=== PATIENT | male | born 1955 | race Caucasian/White ===

== ENCOUNTER 2019-01-14 08:26 | Outpatient (CLI) | payer BC, OTHER ==
--- NOTE | 2019-01-14 09:30 | MRI ---
MRI CERVICAL SPINE WITHOUT CONTRAST: HISTORY: Chronic neck pain. HLA-B27 positive. Shoulder and arm pain. Tingling. COMPARISON: None. FINDINGS: Appropriate T1 marrow signal intensity of the cervical vertebrae. Vertebral body height is maintaine d. No fracture. No significant STIR hyperintensity to suggest vertebral body edema or ligamentous injury. The visualized brain parenchyma, cervicomedullary junction, cervical cord and the upper thoracic cord are normal size and signal intensity. C2-C3: No significant central canal stenosis. Neural foramina are patent. C3-C4: Broad-based disc osteophyte complex. No significant central canal stenosis. Moderate bilate ral foraminal narrowing due to uncovertebral hypertrophy. C4-C5: Central disc protrusion abuts the thecal sac. No significant central canal stenosis. Bilate rally, neural foramina are patent. C5-C6: Broad-based disc osteophyte complex abuts the thecal sac. The ventral thecal sac is mildly d eformed, along with mild deformity of the cervical cord. Mild central canal stenosis. No cord hyperintensity. Moderate right foraminal narrowing due to uncovertebral and facet hypertrophy. Mild left foraminal narrowing due to uncovertebral hypertrophy. C6-C7: There is a broad-based disc bulge with a right paracentral component. Mild central canal jean-pierre nosis. Moderate right foraminal narrowing due to uncovertebral hypertrophy. Left neural foramen is patent. C7-T1: Moderate loss of disc space height. No significant central canal stenosis. Right neural for amen is patent. Severe left foraminal narrowing due to uncovertebral hypertrophy. IMPRESSION: Degenerative changes of the cervical spine, as detailed above. Transcribed Date/Time: 01/14/2019 10:07 AM
--- NOTE | 2019-01-14 21:04 | MRI ---
MRI LUMBAR SPINE NONCONTRAST: 01/14/19 HISTORY: Low back pain. Left leg radiculopathy. FINDINGS: Radiographs are not available for direct correlation, therefore the lowest lumbar type vertebra will be designated as L5, with the remainder numbered accordingly. The conus medullaris has a normal appearance. Vertebral body heights are maintained. At the T11-12 level, there is posterior disc bulge, disc space narrowing, and desiccation of the disc . No focal nerve root compression is apparent. Probable mild to moderate bilateral foraminal stenoses . T12-L1, L1-2: Mild osteophytosis. Central canal and neural foramina are patent. L2-3: Mild disc bulge. Circumferential degenerative changes. Mild stenosis of the central canal. L3-4: Mild disc space narrowing. Mild posterior disc bulge. Circumferential degenerative changes. Mil d to moderate stenosis of the central canal and left neural foramen. L4-5: Prominent disc space narrowing. Diffuse posterior disc bulge and circumferential degenerative c hanges. Moderate stenosis of the central canal and each neural foramen, left greater than right. L5-S1: Disc space narrowing and minimal degenerative retrolisthesis. Posterior central disc protrusio n with slight inferior extension. Far bilateral protrusion of the disc encroaches upon each neural fo ramen. There are also degenerative changes with moderate right and severe left foraminal stenoses. IMPRESSION: Multilevel degenerative changes throughout the lumbar spine as detailed above, with nerve root compro mise and stenosis greatest on the left at the lumbosacral junction. Clinical correlation regarding th e left L5 dermatome is required. POS: BST
== END 2019-01-14 08:27 | disposition home or self-care (01) ==
LOC: SCSMRI 08:26
PROVIDERS: ATTEND Family Medicine
DX: M47.26 Other spondylosis with radiculopathy, lumbar region (principal); M48.061 Spinal stenosis, lumbar region without neurogenic claudication; Z15.89 Genetic susceptibility to other disease; M47.22 Other spondylosis with radiculopathy, cervical region
CPT/HCPCS: 72141; 72148

== ENCOUNTER 2020-04-26 06:20 | Outpatient (CLI) | payer BC ==
[2020-04-26 10:17] LABS: #Eosinphils 0.1 10x3/uL (0.0-0.5); #Monocytes 0.5 10x3/uL (0.0-1.1); #Neutrophils 4.5 10x3/uL (1.5-8.4); %Basophils 0.5 % (0.0-2.0); %Eosinophils 1.5 % (0.0-6.0); %Lymphocytes 22.3 % (18.0-47.0); %Monocytes 7.1 % (0.0-10.0); %Neutrophils 68.4 % (40.0-75.0); Anion Gap 15 mmol/L (10-20); BUN (Urea Nitrogen) 13 mg/dL (8.4-25.7); Calc. Creatinine Clearance 0 mL/min (70-130); Calcium 9.2 mg/dL (7.8-10.44); Carbon Dioxide 24 mmol/L (23-31); Chloride 106 mmol/L (98-107); Glucose 97 mg/dL (80-115); Hemoglobin 15.1 g/dL (14.0-18.0); Mean Corpuscular HGB CONC 33.8 G/DL (32.0-36.0); Mean Corpuscular Volume 91.8 fl (80.0-100.0); Platelet Count 297 10x3/uL (130-400); Potassium 4.5 mmol/L (3.5-5.1); RBC Distribution Width 13.1 % (11.5-14.5); Red Blood Cell (RBC) Count 4.87 10x6/uL (4.40-5.80); Sodium 140 mmol/L (136-145); White Blood Cell (WBC) Count 6.6 10x3/uL (4.5-11.0)
[2020-04-26 18:26] LABS: SARS-CoV-2 MS2 Positive; SARS-CoV-2 N Gene Negative; SARS-CoV-2 S Gene Negative; SARS-CoV-2 by NAA Not Detected (NotDetected); SARS-CoV-2 orf1ab Negative
== END 2020-04-26 06:21 | disposition home or self-care (01) ==
LOC: LABBT 06:20
PROVIDERS: ATTEND Specialist
DX: Z01.818 Encounter for other preprocedural examination (principal); K40.90 Unilateral inguinal hernia, without obstruction or gangrene, not specified as recurrent; Z20.828 Contact with and (suspected) exposure to other viral communicable diseases
CPT/HCPCS: 87635; 93005; 93010; U0003

== ENCOUNTER 2020-04-29 07:41 | Day surgery (SDC) | payer BC, OTHER ==
--- NOTE | 2020-04-28 11:07 | HP ---
Mesfin Aggarwal, a 65-year-old male, [employer] employee nuclear engineering, is from [facility] and two years ago while in [facility], he had diagnosis of right inguinal hernia. Since that time, has enlarged, is bothersome to him. He has large dog that he plays with. Plan is for robot mesh repair of his right inguinal hernia. He is asymptomatic on the left. I cannot feel a hernia on the left, but if robotic/laparoscopically left inguinal hernia is present, we will plan repair. He understands risks of infection, bleeding, reoperation, recurrence, and consents. ALLERGIES: NONE. SOCIAL HISTORY: Tobacco, none. Alcohol, none. PAST SURGICAL HISTORY: Tonsillectomy. PAST MEDICAL HISTORY: Urolithiasis. FAMILY HISTORY: Father, pancreatic cancer, . Mother , diabetes, hypertension. Children, alive and well. REVIEW OF SYSTEMS: Ten-point noncontributory. PHYSICAL EXAMINATION: VITAL SIGNS: 184 pounds, 5 feet 9 inches, 25 BMI. 126/80, 60, and 97.4 degrees. NEUROLOGICAL: Intact. HEAD, EARS, EYES, NOSE, and THROAT: Unremarkable. LUNGS: Clear to auscultation. CARDIAC: Regular rate and rhythm without murmur or gallop. ABDOMEN: Soft, nontender. No masses. EXTREMITIES: Without ankle edema. No lymphadenopathy in neck, groin, or axilla. GENITOURINARY: Testicles are normal. Left groin without hernia. Standing Valsalva examined. Right inguinal hernia is present on standing, enlarged on Valsalva. ASSESSMENT AND PLAN: Right inguinal hernia. Plan for laparoscopic/robotic mesh repair as an outpatient. He understands risks of infection, bleeding, reoperation, recurrence, and consents. He consents for left inguinal hernia repair if indicated based on intraoperative findings. Job ID: [id number]
[2020-04-28 11:20] VITALS: BMI 27.1
[2020-04-29] MEDS ORDERED: Gabapentin 300 MG CAP ONE (08:00)
[2020-04-29] MEDS ORDERED: Ketorolac Tromethamine 30 MG/ML VIAL ONE ×2 (08:01→08:56)
[2020-04-29] MEDS ORDERED: Acetaminophen 500 MG TAB ONE ×2 (08:01→08:55)
[2020-04-29] MEDS ORDERED: Rocuronium Bromide 10 MG/ML (10ML VIAL) ONE (09:42)
[2020-04-29] MEDS ORDERED: ePHEDrine 50 MG/ML VIAL ONE (09:42)
[2020-04-29] MEDS ORDERED: Dexamethasone 20 MG/5 ML VIAL ONE (09:42)
[2020-04-29] MEDS ORDERED: PHENYLEPHRINE-NS 100 MCG/ML 10 ML SYRINGE ONE (09:42)
[2020-04-29] MEDS ORDERED: PROPOFOL 200 MG/20 ML VIAL ONE (09:42)
[2020-04-29] MEDS ORDERED: Glycopyrrolate 0.2 MG/ML 5 ML SYRINGE ONE (09:42)
[2020-04-29] MEDS ORDERED: Ondansetron PF 4 MG/2 ML Vial ONE ×2 (09:42→12:32)
[2020-04-29] MEDS ORDERED: Lidocaine 1% PF 5 ML VIAL ONE (09:42)
[2020-04-29] MEDS ORDERED: Lidocaine 1% w/Epinephrine 1:100K 20 ML VIAL ONE (10:41)
[2020-04-29] MEDS ORDERED: Bupivacaine PF 0.5% 30 ML VIAL ONE (10:41)
[2020-04-29] MEDS ORDERED: Fentanyl 100 MCG/2 ML VIAL ONE ×2 (10:49→12:55)
--- NOTE | 2020-04-29 12:49 | OP ---
DATE OF PROCEDURE: 04/29/2020 PREOPERATIVE DIAGNOSIS: Right inguinal hernia. POSTOPERATIVE DIAGNOSIS: Pantaloon right inguinal hernia. PROCEDURE PERFORMED: Robot/laparoscopic repair of pantaloon right inguinal hernia with Bard Mesh, 3DMax, large, right. ANESTHESIA: General, local 0.5% Marcaine 30 mL mixed with 1% Xylocaine with epinephrine 20 mL, total volume used. DESCRIPTION OF PROCEDURE: The patient was taken to the operating room, where under general anesthesia, Diaz catheter was placed and at the end of the procedure, it was removed. Abdomen was clipped of hair, prepared with ChloraPrep and draped in routine fashion. A supraumbilical left of midline incision made, pneumoperitoneum to 15 mmHg was obtained with a Veress needle, replaced with an 11 balloon port, placing the scope, inserting ports, left lateral and right lateral, anterior axillary lines just above the umbilical level, placed 8 mm ports, docking the robot, undertaking robot/laparoscopic right inguinal hernia repair. Left groin without hernia defect. Right groin revealed a pantaloon hernia. Peritoneal flap developed from the anterior superior iliac spine, right to the midline, dissecting laterally retroperitoneal and medially dissecting down to the Dedrick ligament. There was some oozing, controlled with cautery. Hernia sac dissected free from the cord structures for at least 8 to 10 cm. Good hemostasis noted. There was some oozing, Roxie placed. Bard 3DMax large mesh placed, properly oriented, secured to Dedrick ligament with 2-0 Vicryl and to the anterior abdominal wall to the right inferior epigastric vessels with 2-0 Vicryl. Once it was properly positioned and secured, covering the hernia defect, peritoneal flap closed with continuous suture of #3-0 Stratafix. Good hemostasis noted. Good coverage to the hernia noted. Pneumoperitoneum reduced. All instruments were removed and all skin incisions were approximated with interrupted subdermal 4-0 Monocryl and Denio glue applied. Job ID: [id number]
[2020-04-29] MEDS ORDERED: HYDROcodone/Acetaminophen 5/325 mg Tablet ONE (15:02)
[2020-04-29] MEDS ORDERED: Ondansetron ODT 4 MG TAB ONE (15:20)
== END 2020-04-29 15:30 | disposition home or self-care (01) ==
LOC: SDC 07:41
PROVIDERS: ATTEND Specialist
PROC: 0YU54JZ Supplement Right Inguinal Region with Synthetic Substitute, Percutaneous Endoscopic Approach (ICD-10-PCS; principal; 2020-04-29)
DX: K40.90 Unilateral inguinal hernia, without obstruction or gangrene, not specified as recurrent (principal)
CPT/HCPCS: C1781; J0690; J1100; J1885; J2405; J2704; J3010; J3490; Q0162; S0020

== ENCOUNTER 2020-06-14 14:39 | Inpatient (IN) | payer BC, OTHER ==
[2020-06-14] MEDS ORDERED: Cefepime 2 GM VIAL ONE (15:17)
[2020-06-14 15:28] LABS: #Basophils 0.1 thou/uL (0.0-0.2); #Eosinphils 0.1 thou/uL (0.0-0.7); #Monocytes 0.6 thou/uL (0.11-0.59); %Eosinophils 1.8 % (0.0-10.0); %Lymphocytes 28.7 % (21.0-51.0); %Monocytes 9.5 % (0.0-10.0); Hemoglobin 14.8 g/dL (14.0-18.0); Mean Corpuscular HGB CONC 35.2 g/dL (32.0-36.0); Mean Corpuscular Hemoglobin 33.3 pg (27.0-31.0); Mean Corpuscular Volume 94.7 fL (78.0-98.0); Mean Platelet Volume 7.8 fL (7.4-10.4); Platelet Count 263 thou/uL (130-400); RBC Distribution Width 11.8 % (11.5-14.5); Red Blood Cell (RBC) Count 4.45 mill/uL (4.70-6.10); White Blood Cell (WBC) Count 6.8 thou/uL (4.8-10.8)
[2020-06-14] MEDS ORDERED: Morphine 4 MG/ML VIAL ONE (15:33)
[2020-06-14] MEDS ORDERED: Ketorolac Tromethamine 30 MG/ML VIAL ONE (15:33)
[2020-06-14] MEDS ORDERED: Vancomycin 1.5 GRAM/300 ML BAG 1.5 GM in Premix Bag 1 BAG IVPB SCH (15:45)
[2020-06-14 15:50] LABS: ALT (SGPT) 15 U/L (8-55); AST (SGOT) 13 U/L (5-34); Albumin 3.9 g/dL (3.4-4.8); Alkaline Phosphatase 101 U/L (40-110); Anion Gap 13 mmol/L (10-20); BUN (Urea Nitrogen) 15 mg/dL (8.4-25.7); Bilirubin, Total 0.5 mg/dL (0.2-1.2); Calc. Creatinine Clearance 0 mL/min (70-130); Calcium 9.1 mg/dL (7.8-10.44); Carbon Dioxide 25 mmol/L (23-31); Chloride 105 mmol/L (98-107); Globulin 3.7 g/dL (2.4-3.5); Glucose 101 mg/dL (80-115); Potassium 4.2 mmol/L (3.5-5.1); Protein, Total 7.6 g/dL (5.8-8.1); Sodium 139 mmol/L (136-145)
[2020-06-14] MEDS ORDERED: Ondansetron ODT 4 MG TAB PO PRN (16:14)
[2020-06-14] MEDS ORDERED: Calcium Carbonate 500 MG ChewTAB PO PRN (16:14)
[2020-06-14] MEDS ORDERED: HYDROcodone/Acetaminophen 10/325 mg Tablet PO PRN (16:14)
[2020-06-14] MEDS ORDERED: Acetaminophen 650 MG Suppository PR PRN (16:14)
[2020-06-14 17:42] VITALS: BMI 26.2
[2020-06-14 19:03] LABS: Bilirubin Negative (Negative); Blood, Urine Negative (Negative); Clarity Clear (Clear); Glucose, Urine (Dipstick) Normal (Negative); Ketone, Urine Negative (Negative); Leukocyte Negative Leu/uL (Negative); Nitrite Negative (Negative); Protein, Urine (Dipstick) Negative (Neg-Trace); Specific Gravity, Urine 1.014 (1.002-1.036); Urobilinogen Normal mg/dL (Less than 2)
[2020-06-14] MEDS ORDERED: Melatonin 3 MG TAB PO SCH (23:15)
[2020-06-14] MEDS: Docusate Calcium (SURFAK) 240 MG CAP PO SCH (23:47)
[2020-06-14] MEDS: Cefepime 2 GM in Sodium Chloride 0.9% 100 ML IVPB SCH (23:47)
[2020-06-15] MEDS: VANCOMYCIN 1.25 GM/250 ML BAG 1.25 GM in Premix Bag 1 BAG IVPB SCH ×2 (05:36→17:37)
[2020-06-15 06:26] LABS: Eosinophils 4 % (0-10); Lymphocytes 35 % (21-51); MDiff Complete? YES; Mean Corpuscular HGB CONC 34.1 g/dL (32.0-36.0); Mean Corpuscular Hemoglobin 32.5 pg (27.0-31.0); Mean Corpuscular Volume 95.5 fL (78.0-98.0); Monocytes 10 % (0-10); Neutrophil 51 % (42-75); Platelet Count 244 thou/uL (130-400); Platelet Morphology Comment Appears Adequate; RBC Distribution Width 11.8 % (11.5-14.5); White Blood Cell (WBC) Count 6.5 thou/uL (4.8-10.8)
[2020-06-15 06:40] LABS: ALT (SGPT) 12 U/L (8-55); AST (SGOT) 11 U/L (5-34); Albumin 3.7 g/dL (3.4-4.8); Alkaline Phosphatase 94 U/L (40-110); Anion Gap 14 mmol/L (10-20); BUN (Urea Nitrogen) 13 mg/dL (8.4-25.7); Bilirubin, Total 0.6 mg/dL (0.2-1.2); Calc. Creatinine Clearance 84 mL/min (70-130); Calcium 8.7 mg/dL (7.8-10.44); Carbon Dioxide 27 mmol/L (23-31); Chloride 105 mmol/L (98-107); Glucose 83 mg/dL (80-115); Potassium 4.5 mmol/L (3.5-5.1); Protein, Total 6.7 g/dL (5.8-8.1); Sodium 141 mmol/L (136-145)
[2020-06-15] MEDS ORDERED: hydrALAZINE 20 MG/ML VIAL SLOW IVP PRN (08:30)
[2020-06-15] MEDS ORDERED: Sodium Chloride 0.65% Nasal 44 ML BOT EA NARE PRN (08:30)
[2020-06-15] MEDS ORDERED: Benzonatate 100 MG CAP PO PRN (08:30)
[2020-06-15] MEDS ORDERED: Zolpidem Tartrate 5 MG TAB PO PRN (08:30)
[2020-06-15] MEDS ORDERED: Loratadine 10 MG TAB PO PRN (08:30)
[2020-06-15] MEDS ORDERED: Bisacodyl 5 MG TAB PO PRN (08:30)
[2020-06-15] MEDS ORDERED: HYDROcodone/Acetaminophen 5/325 mg Tablet PO PRN (08:30)
[2020-06-15] MEDS ORDERED: Loperamide HCl 2 MG CAP PO PRN (08:30)
[2020-06-15] MEDS ORDERED: GUAIFENESIN SF SOLN 200 MG/10 ML UDCUP PO PRN (08:30)
[2020-06-15] MEDS ORDERED: Senokot S 8.6-50 MG TAB PO PRN (08:30)
[2020-06-15] MEDS ORDERED: Cepastat Lozenges 1 LOZ PO PRN (08:30)
[2020-06-15] MEDS ORDERED: FLU VACC QS2020-21(6MOS UP)/PF 60 MCG/0.5 ML SYRINGE IM ONE (09:00)
[2020-06-15] MEDS ORDERED: Enoxaparin Sodium 40 MG/0.4 ML SYRINGE SC SCH (09:00)
[2020-06-15] MEDS: Cefepime 2 GM in Sodium Chloride 0.9% 100 ML IVPB SCH ×3 (09:02→23:19)
[2020-06-15] MEDS: Docusate Calcium (SURFAK) 240 MG CAP PO SCH ×2 (09:05→20:02)
[2020-06-15] MEDS: Timolol 0.5% Ophth Soln 5 ml Bottle EA EYE SCH (09:06)
[2020-06-15] MEDS: HYDROcodone/Acetaminophen 10/325 mg Tablet PO PRN ×2 (09:10→16:39)
[2020-06-15 09:52] LABS: PTT 33.2 sec (22.9-36.1); Prothrombin Time 13.5 sec (12.0-14.7)
[2020-06-15 12:58] LABS: SARS-CoV-2 PCR by NAA Not Detected (NotDetected)
[2020-06-15] MEDS: Ondansetron PF 4 MG/2 ML Vial IVP PRN (19:35)
[2020-06-15] MEDS: Latanoprost 0.005% Ophth Soln 2.5 ml Bottle EA EYE SCH (20:02)
[2020-06-15] MEDS: Melatonin 3 MG TAB PO SCH (20:06)
[2020-06-15] MEDS: Acetaminophen 325 MG TAB PO PRN (20:07)
[2020-06-16] MEDS: VANCOMYCIN 1.25 GM/250 ML BAG 1.25 GM in Premix Bag 1 BAG IVPB SCH ×2 (05:28→18:00)
[2020-06-16] MEDS: Enoxaparin Sodium 40 MG/0.4 ML SYRINGE SC SCH (08:07)
[2020-06-16] MEDS: Cefepime 2 GM in Sodium Chloride 0.9% 100 ML IVPB SCH ×3 (08:07→23:23)
[2020-06-16] MEDS: Timolol 0.5% Ophth Soln 5 ml Bottle EA EYE SCH (08:09)
[2020-06-16] MEDS: Docusate Calcium (SURFAK) 240 MG CAP PO SCH ×2 (08:09→20:25)
[2020-06-16] MEDS: Acetaminophen 325 MG TAB PO PRN ×2 (08:16→18:10)
[2020-06-16] MEDS: Ondansetron PF 4 MG/2 ML Vial IVP PRN (08:19)
[2020-06-16 17:12] LABS: Vancomycin, Trough 16.3 ug/mL
[2020-06-16] MEDS: Melatonin 3 MG TAB PO SCH (20:25)
[2020-06-16] MEDS: Latanoprost 0.005% Ophth Soln 2.5 ml Bottle EA EYE SCH (20:28)
[2020-06-17] MEDS: VANCOMYCIN 1.25 GM/250 ML BAG 1.25 GM in Premix Bag 1 BAG IVPB SCH (05:30)
[2020-06-17] MEDS: Acetaminophen 325 MG TAB PO PRN (05:30)
[2020-06-17 07:59] VITALS: BP 131/87
[2020-06-17 08:25] VITALS: TEMP 97.6
[2020-06-17] MEDS: Enoxaparin Sodium 40 MG/0.4 ML SYRINGE SC SCH (08:56)
[2020-06-17] MEDS: Timolol 0.5% Ophth Soln 5 ml Bottle EA EYE SCH (08:59)
[2020-06-17] MEDS: Cefepime 2 GM in Sodium Chloride 0.9% 100 ML IVPB SCH (08:59)
[2020-06-17] MEDS: Docusate Calcium (SURFAK) 240 MG CAP PO SCH (08:59)
== END 2020-06-17 12:44 | disposition home or self-care (01) | DRG 552 ==
LOC: ERS 14:39 → T4-A 15:58
PROVIDERS: ADMIT Internal Medicine; ATTEND Internal Medicine
PROC: 02HV33Z Insertion of Infusion Device into Superior Vena Cava, Percutaneous Approach (ICD-10-PCS; principal; 2020-06-16)
PROC: B548ZZA Ultrasonography of Superior Vena Cava, Guidance (ICD-10-PCS; 2020-06-16)
DX: M46.46 Discitis, unspecified, lumbar region (principal); M46.26 Osteomyelitis of vertebra, lumbar region; H40.9 Unspecified glaucoma; G89.29 Other chronic pain; N28.1 Cyst of kidney, acquired; Z20.822 Contact with and (suspected) exposure to COVID-19
CPT/HCPCS: 36415; 36416; 36569; 71045; 74178; 78306; 80053; 80202; 81003; 83605; 84145; 85007; 85025; 85027; 85610; 85652; 85730; 86140; 87040; 87635; 96365; 96375; A9503; C1751; J0692; J1650; J1885; J2270; J2405; J3370; J3490; U0003; U0005

== ENCOUNTER 2020-09-09 13:03 | Outpatient (CLI) | payer BC, OTHER ==
[~2020-09-09 13:03] MED LIST: Iopamidol-370 76% 500 ML 1 ML ONE
== END 2020-09-09 13:04 | disposition home or self-care (01) ==
LOC: BICCT 13:03
PROVIDERS: ATTEND Internal Medicine Infectious Disease
DX: N28.1 Cyst of kidney, acquired (principal); R91.8 Other nonspecific abnormal finding of lung field
CPT/HCPCS: 71260; 74177; 82565; Q9967

== ENCOUNTER 2020-10-05 14:35 | Outpatient (CLI) | payer BC, OTHER | END 2020-10-05 14:36 | disposition home or self-care (01) | LOC: BICMAMMO 14:35 | PROVIDERS: ATTEND Neurological Surgery | DX: Z13.820 Encounter for screening for osteoporosis (principal) | CPT/HCPCS: 77080 ==

== ENCOUNTER 2020-12-27 18:00 | Outpatient (CLI) | payer BC, OTHER | END 2020-12-27 18:01 | disposition home or self-care (01) | LOC: SLEEPLAB 18:00 | PROVIDERS: ATTEND Nurse Practitioner Family | DX: G47.33 Obstructive sleep apnea (adult) (pediatric) (principal); G47.31 Primary central sleep apnea; R53.83 Other fatigue; R06.83 Snoring | CPT/HCPCS: 95806 ==